=== PATIENT | female | born 1945 | race Hispanic/Latino ===

== ENCOUNTER 2024-05-17 22:29 | Emergency (ER) | payer MEDICARE ==
--- OUTSIDE RECORDS SUMMARY | 2024-05-17 22:32 | XMS REPORT | Continuity of Care Document ---
Author Name Unknown Address [address] [facility] [address] [place] [address] [facility] thconnect Address [address] [facility] [place] [address] Care Team Providers Care Calculator Operator Name Role Phone PCP, PATIENT DOES NOT HAVE A Primary Care Physic sarah Unavailable Huseyin Armijo Attending Clinician Unavailable Maureen Khan Attending Clinician Unavailable MARCELA PAZ Attending Clinician Unavail able Radiology Attending Clinician Unavailable RADIOLOGY Attending Clinician Unavailable Payers Payer Name Policy Type Policy Number Effective Date Expirati on Date Source [employer] [facility] OON Medicare [id number] [employer] [facility] (MEDICARE REPLACEMENT HMO) [id number] 00:[facility]:00 [employer] Replace C1 [id number] 2018 00:00:00 [facility] Problems Condition Name Condition Details Condition Category Status Onset Date Resolution Date Last Treatment Date Treating Clinician Comments Source [id number] Body mass index [BMI] 32.0-32.9, adult Problem [facility] [id number] Other obesity due to excess calories Problem [facility] [id number] Moderate major depression , single episode Problem [facility] Osteoarthr itis of multiple joints Other osteoarthr itis involving multiple joints Problem [facility] [id number] Sciatica of left side Problem [facility] [id number] Obesity (BMI 30.0-34.9) Problem [facility] [id number] Mixed hyperlipid emia Problem [facility] [id number] Other chronic pain Problem [facility] [id number] Lumbago with sciatica, left side Problem [facility] [id number] Depression with anxiety Problem [facility] Depression Depression Problem [facility] Back pain Back pain Problem Comm [facility] Headache Chronic headache Problem [facility] [id number] 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 Problem [facility] [id number] Osteopenia of other site Problem [facility] [id number] Primary osteoarthr itis, unspecifie d site Problem [facility] Hyperlipid emia Hyperlipid emia Problem [facility] [id number] Lumbago with sciatica, right side Problem [facility] [id number] Arthritis of knee, right Problem [facility] Urinary frequency Urinary frequency Problem [facility] [id number] Sciatica, right side Problem [facility] 703573401 History of recent fall Problem [facility] [id number] Patient understand s importance of medication adherence Problem [facility] Seasonal allergic rhinitis Seasonal allergic rhinitis, unspecifie d trigger Problem [facility] Overweight Overweight Problem [facility] [id number] Primary osteoarthr itis of left shoulder Problem [facility] Allergies, Adverse Reactions, Alerts Allergy Name Allergy Type Status Severity Reaction(s) Onset Date Inactive Date Treating Clinician Comments Source NO KNOWN ALLERGIE S Drug Class Active [facility] Social History Social Habit Start Date Stop Date Quantity Comments Source History of Tobacco Use [facility] Sex Assigned At [facility] Smoking Status Start Date Stop Date Source Unknown if ever smoked [facility] Never Smoker [facility] Medications Ordered Medication Name Filled Medication Name Start Date Stop Date Current Medication? Ordering Clinician Indication Dosage Frequency Signature (SIG) Comments Components Source Ketorolac 15mg Ketorolac 15mg 2023-05 0-14 00:00: 00 No 30mg [facility] Bupivicaine Bay Bupivicaine [place] 3 00:00: 00 No 2.5mg [facility] Kenalog (Triamcinol one) Kenalog (Triamcinol one) 2- 00:00: 00 No 40mg [facility] Pravastatin Sodium 10 MG Pravastatin Sodium 10 MG No 1{table t_at_be dtime} QD Pravastati n Sodium 10 MG Cyclobenzap rine HCl 5 MG Cyclobenzap rine HCl 5 MG No 1{table t_at_be dtime_a s_neede d} QD Cyclobenza mati HCl 5 MG Immunizations Ordered Immunization Name Filled Immunization Name Date Status Comments Source FLUZONE HIGH DOSE OVER 65 FLUZONE HIGH DOSE OVER 65 2022-03-31 09:43:00 Completed [facility] FLUZONE HIGH DOSE OVER 65 FLUZONE HIGH DOSE OVER 65 2022-03-31 09:43:00 Completed [facility] FLUZONE HIGH DOSE OVER 65 FLUZONE HIGH DOSE OVER 65 2022-03-31 09:43:00 Completed [facility] Shingrix Shingrix 2021-04-16 11:11:00 Completed [facility] Shingrix Shingrix 2021-04-16 11:11:00 Completed [facility] Shingrix Shingrix 2021-04-16 11:11:00 Completed [facility] Shingrix Shingrix 2021-04-16 11:11:00 Completed [facility] Shingrix Shingrix 2021-04-16 11:11:00 Completed [facility] FluAD FluAD 2021-04-16 11:10:00 Completed [facility] FluAD FluAD 2021-04-16 11:10:00 Completed [facility] FluAD FluAD 2021-04-16 11:10:00 Completed [facility] FluAD FluAD 2021-04-16 11:10:00 Completed [facility] FluAD FluAD 2021-04-16 11:10:00 Completed [facility] Bupivicaine Bay Bupivicaine [place] 2020-08-09 15:38:00 Completed [facility] Kenalog (Triamcinolone) Kenalog (Triamcinolone) 2020-08-09 15:38:00 Completed [facility] FluAD FluAD 2020-02-09 09:56:00 Completed [facility] FluAD FluAD 2020-02-09 09:56:00 Completed [facility] FluAD FluAD 2020-02-09 09:56:00 Completed [facility] FluAD FluAD 2020-02-09 09:56:00 Completed [facility] FluAD FluAD 2020-02-09 09:56:00 Completed [facility] FluAD FluAD 2020-02-09 09:56:00 Completed [facility] FluAD FluAD 2018-03-24 08:39:00 Completed [facility] FluAD FluAD 2018-03-24 08:39:00 Completed [facility] FluAD FluAD 2018-03-24 08:39:00 Completed [facility] FluAD FluAD 2018-03-24 08:39:00 Completed [facility] FluAD FluAD 2018-03-24 08:39:00 Completed [facility] FluAD FluAD 2018-03-24 08:39:00 Completed [facility] Kenalog (Triamcinolone) Kenalog (Triamcinolone) 2017-06-23 08:51:00 Completed [facility] FluAD FluAD Unknown Completed [facility] Shingrix Shingrix Unknown Completed [facility] FLUZONE HIGH DOSE OVER 65 FLUZONE HIGH DOSE OVER 65 Unknown Completed [facility] FluAD FluAD Unknown Completed [facility] Shingrix Shingrix Unknown Completed [facility] FLUZONE HIGH DOSE OVER 65 FLUZONE HIGH DOSE OVER 65 Unknown Completed [facility] FluAD Quad SD FluAD Quad SD Unknown Completed [facility] FluAD FluAD Unknown Completed [facility] Shingrix Shingrix Unknown Completed [facility] FLUZONE HIGH DOSE OVER 65 FLUZONE HIGH DOSE OVER 65 Unknown Completed [facility] FluAD Quad SD FluAD Quad SD Unknown Completed [facility] FluAD FluAD Unknown Completed [facility] Shingrix Shingrix Unknown Completed [facility] FLUZONE HIGH DOSE OVER 65 FLUZONE HIGH DOSE OVER 65 Unknown Completed [facility] Fluad (aIIV4) - SDS - 0.5mL Fluad (aIIV4) - SDS - 0.5mL Unknown Completed [facility] FluAD FluAD Unknown Completed [facility] Shingrix Shingrix Unknown Completed [facility] FLUZONE HIGH DOSE OVER 65 FLUZONE HIGH DOSE OVER 65 Unknown Completed [facility] Fluad (aIIV4) - SDS - 0.5mL Fluad (aIIV4) - SDS - 0.5mL Unknown Completed [facility] FluAD FluAD Unknown Completed [facility] Shingrix Shingrix Unknown Completed [facility] FLUZONE HIGH DOSE OVER 65 FLUZONE HIGH DOSE OVER 65 Unknown Completed [facility] Fluad (aIIV4) - SDS - 0.5mL Fluad (aIIV4) - SDS - 0.5mL Unknown Completed [facility] FluAD FluAD Unknown Completed [facility] Shingrix Shingrix Unknown Completed [facility] FLUZONE HIGH DOSE OVER 65 FLUZONE HIGH DOSE OVER 65 Unknown Completed [facility] Fluad (aIIV4) - SDS - 0.5mL Fluad (aIIV4) - SDS - 0.5mL Unknown Completed [facility] FluAD FluAD Unknown Completed [facility] Shingrix Shingrix Unknown Completed [facility] FLUZONE HIGH DOSE OVER 65 FLUZONE HIGH DOSE OVER 65 Unknown Completed [facility] Fluad (aIIV4) - SDS - 0.5mL Fluad (aIIV4) - SDS - 0.5mL Unknown Completed [facility] FluAD FluAD Unknown Completed [facility] Shingrix Shingrix Unknown Completed [facility] FLUZONE HIGH DOSE OVER 65 FLUZONE HIGH DOSE OVER 65 Unknown Completed [facility] Vital Signs Vital Name Observation Time Observation Value Comments S ource height 2024-03-29 08:15:00 61.5 [in_i] Comm on [facility] weight 2024-03-29 08:15:00 147.4 [lb_av] Co mmon [facility] temperature 2024-03-29 08:15:00 98.2 [degF] Com mon [facility] bmi 2024-03-29 08:15:00 27.4 kg/m2 Commo n [facility] oximetry 2024-03-29 08:15:00 98 % Commo n [facility] blood pressure systolic 2024-03-29 08:15:00 124 mm[Hg] [facility] blood pressure diastolic 2024-03-29 08:15:00 72 mm[Hg] Common [facility] height 2024-02-29 10:40:00 61.5 [in_i] Comm on [facility] weight 2024-02-29 10:40:00 152.0 [lb_av] Co mmon [facility] temperature 2024-02-29 10:40:00 98.0 [degF] Com mon [facility] bmi 2024-02-29 10:40:00 28.25 kg/m2 Comm on [facility] oximetry 2024-02-29 10:40:00 97 % Commo n [facility] respiratory rate 2024-02-29 10:40:00 18 /min Common [facility] blood pressure systolic 2024-02-29 10:40:00 122 mm[Hg] Common [facility] blood pressure diastolic 2024-02-29 10:40:00 79 mm[Hg] Common [facility] height 2023-11-27 08:30:00 61.5 [in_i] Comm on [facility] weight 2023-11-27 08:30:00 161 [lb_av] Comm on [facility] temperature 2023-11-27 08:30:00 97.8 [degF] Com mon [facility] bmi 2023-11-27 08:30:00 29.92 kg/m2 Comm on [facility] oximetry 2023-11-27 08:30:00 96 % Commo n [facility] blood pressure systolic 2023-11-27 08:30:00 126 mm[Hg] [facility] blood pressure diastolic 2023-11-27 08:30:00 64 mm[Hg] Common [facility] height 2023-11-27 08:30:00 61.5 [in_i] Comm on [facility] weight 2023-11-27 08:30:00 161 [lb_av] Comm on [facility] temperature 2023-11-27 08:30:00 97.8 [degF] Com [facility] bmi 2023-11-27 08:30:00 29.92 kg/m2 Comm on [facility] oximetry 2023-11-27 08:30:00 96 % Commo n [facility] blood pressure systolic 2023-11-27 08:30:00 126 mm[Hg] [facility] blood pressure diastolic 2023-11-27 08:30:00 64 mm[Hg] [facility] height 2023-07-24 08:40:00 61.5 [in_i] Comm on [facility] weight 2023-07-24 08:40:00 172.0 [lb_av] Co [facility] temperature 2023-07-24 08:40:00 97.2 [degF] Com [facility] bmi 2023-07-24 08:40:00 31.97 kg/m2 Comm on [facility] oximetry 2023-07-24 08:40:00 97 % Commo n [facility] respiratory rate 2023-07-24 08:40:00 18 /min [facility] blood pressure systolic 2023-07-24 08:40:00 129 mm[Hg] [facility] blood pressure diastolic 2023-07-24 08:40:00 63 mm[Hg] Common [facility] height 2023-07-24 08:40:00 61.5 [in_i] Comm on [facility] weight 2023-07-24 08:40:00 172.0 [lb_av] Co [facility] temperature 2023-07-24 08:40:00 97.2 [degF] Com [facility] bmi 2023-07-24 08:40:00 31.97 kg/m2 Comm on [facility] oximetry 2023-07-24 08:40:00 97 % Commo n [facility] respiratory rate 2023-07-24 08:40:00 18 /min Common [facility] blood pressure systolic 2023-07-24 08:40:00 129 mm[Hg] [facility] blood pressure diastolic 2023-07-24 08:40:00 63 mm[Hg] [facility] height 2023-07-24 08:50:00 61.5 [in_i] Comm on [facility] weight 2023-07-24 08:50:00 172.0 [lb_av] Co mmon [facility] temperature 2023-07-24 08:50:00 97.2 [degF] Com [facility] bmi 2023-07-24 08:50:00 31.97 kg/m2 Comm on [facility] oximetry 2023-07-24 08:50:00 97 % Commo n [facility] respiratory rate 2023-07-24 08:50:00 18 /min Common [facility] blood pressure systolic 2023-07-24 08:50:00 129 mm[Hg] [facility] blood pressure diastolic 2023-07-24 08:50:00 63 mm[Hg] [facility] height 2023-03-26 08:30:00 61.5 [in_i] Comm on [facility] weight 2023-03-26 08:30:00 168.2 [lb_av] Co mmon [facility] temperature 2023-03-26 08:30:00 97.2 [degF] Com [facility] bmi 2023-03-26 08:30:00 31.26 kg/m2 Comm on [facility] oximetry 2023-03-26 08:30:00 98 % Commo n [facility] respiratory rate 2023-03-26 08:30:00 16 /min Common [facility] blood pressure systolic 2023-03-26 08:30:00 124 mm[Hg] [facility] blood pressure diastolic 2023-03-26 08:30:00 66 mm[Hg] [facility] height 2022-11-20 10:40:00 61.5 [in_i] Comm on [facility] weight 2022-11-20 10:40:00 173.4 [lb_av] Co mmon [facility] temperature 2022-11-20 10:40:00 97.3 [degF] Com mon [facility] bmi 2022-11-20 10:40:00 32.23 kg/m2 Comm on [facility] oximetry 2022-11-20 10:40:00 99 % Commo n [facility] respiratory rate 2022-11-20 10:40:00 18 /min [facility] blood pressure systolic 2022-11-20 10:40:00 129 mm[Hg] [facility] blood pressure diastolic 2022-11-20 10:40:00 71 mm[Hg] Common [facility] height 2022-07-24 09:30:00 61.5 [in_i] Comm on [facility] weight 2022-07-24 09:30:00 171.6 [lb_av] Co mmon [facility] temperature 2022-07-24 09:30:00 97.3 [degF] Com mon [facility] bmi 2022-07-24 09:30:00 31.89 kg/m2 Comm on [facility] oximetry 2022-07-24 09:30:00 98 % Commo n [facility] respiratory rate 2022-07-24 09:30:00 18 /min [facility] blood pressure systolic 2022-07-24 09:30:00 117 mm[Hg] [facility] blood pressure diastolic 2022-07-24 09:30:00 71 mm[Hg] Common [facility] height 2022-07-24 09:30:00 61.5 [in_i] Comm on [facility] weight 2022-07-24 09:30:00 171.6 [lb_av] Co mmon [facility] temperature 2022-07-24 09:30:00 97.3 [degF] Com mon [facility] bmi 2022-07-24 09:30:00 31.89 kg/m2 Comm on [facility] oximetry 2022-07-24 09:30:00 98 % Commo n [facility] respiratory rate 2022-07-24 09:30:00 18 /min [facility] blood pressure systolic 2022-07-24 09:30:00 117 mm[Hg] [facility] blood pressure diastolic 2022-07-24 09:30:00 71 mm[Hg] Common [facility] height 2022-03-31 09:40:00 61.5 [in_i] Comm on [facility] weight 2022-03-31 09:40:00 176.2 [lb_av] Co mmon [facility] temperature 2022-03-31 09:40:00 97.5 [degF] Com mon [facility] bmi 2022-03-31 09:40:00 32.75 kg/m2 Comm on [facility] oximetry 2022-03-31 09:40:00 95 % Commo n [facility] respiratory rate 2022-03-31 09:40:00 18 /min Common [facility] blood pressure systolic 2022-03-31 09:40:00 124 mm[Hg] [facility] blood pressure diastolic 2022-03-31 09:40:00 67 mm[Hg] Common [facility] height 2021-11-28 09:20:00 61.5 [in_i] Comm on [facility] weight 2021-11-28 09:20:00 173.6 [lb_av] Co mmon [facility] temperature 2021-11-28 09:20:00 97.6 [degF] Com [facility] bmi 2021-11-28 09:20:00 32.27 kg/m2 Comm on [facility] oximetry 2021-11-28 09:20:00 93 % Commo n [facility] respiratory rate 2021-11-28 09:20:00 18 /min Common [facility] blood pressure systolic 2021-11-28 09:20:00 137 mm[Hg] [facility] blood pressure diastolic 2021-11-28 09:20:00 72 mm[Hg] [facility] height 2021-07-25 09:30:00 61.5 [in_i] Comm on [facility] weight 2021-07-25 09:30:00 175.2 [lb_av] Co mmon [facility] temperature 2021-07-25 09:30:00 97.9 [degF] Com [facility] bmi 2021-07-25 09:30:00 32.56 kg/m2 Comm on [facility] oximetry 2021-07-25 09:30:00 99 % Commo n [facility] respiratory rate 2021-07-25 09:30:00 17 /min Common [facility] blood pressure systolic 2021-07-25 09:30:00 135 mm[Hg] [facility] blood pressure diastolic 2021-07-25 09:30:00 67 mm[Hg] [facility] height 2021-07-25 09:40:00 61.5 [in_i] Comm on [facility] weight 2021-07-25 09:40:00 175.2 [lb_av] Co mmon [facility] temperature 2021-07-25 09:40:00 97.9 [degF] Com mon [facility] bmi 2021-07-25 09:40:00 32.56 kg/m2 Comm on [facility] oximetry 2021-07-25 09:40:00 99 % Commo n [facility] respiratory rate 2021-07-25 09:40:00 17 /min Common [facility] blood pressure systolic 2021-07-25 09:40:00 135 mm[Hg] [facility] blood pressure diastolic 2021-07-25 09:40:00 76 mm[Hg] Common [facility] height 2021-04-23 11:00:00 61.5 [in_i] Comm on [facility] weight 2021-04-23 11:00:00 175.9 [lb_av] Co mmon [facility] temperature 2021-04-23 11:00:00 97.3 [degF] Com mon [facility] bmi 2021-04-23 11:00:00 32.69 kg/m2 Comm on [facility] oximetry 2021-04-23 11:00:00 97 % Commo n [facility] respiratory rate 2021-04-23 11:00:00 17 /min Common [facility] blood pressure systolic 2021-04-23 11:00:00 132 mm[Hg] [facility] blood pressure diastolic 2021-04-23 11:00:00 70 mm[Hg] [facility] blood pressure systolic 2020-12-06 08:40:00 135 mm[Hg] [facility] blood pressure diastolic 2020-12-06 08:40:00 72 mm[Hg] [facility] height 2020-12-06 08:40:00 61.5 [in_i] Comm on [facility] weight 2020-12-06 08:40:00 171.6 [lb_av] Co mmon [facility] temperature 2020-12-06 08:40:00 96.6 [degF] Com mon [facility] bmi 2020-12-06 08:40:00 31.89 kg/m2 Comm on [facility] oximetry 2020-12-06 08:40:00 98 % Commo n [facility] respiratory rate 2020-12-06 08:40:00 16 /min [facility] Procedures Procedure Date / Time Performed Performing Clinicia n Source DEXA AXIAL (HIP AND SPINE) 2021-08-16 14:53:11 Requisition, Paper [facility] NOTICE OF PRIVACY PRACTICES 2021-08-16 14:14:39 Doctor Unassigned, [place] [facility] CONSENT/REFUSAL FOR DIAGNOSIS AND TREATMENT 2021-08-16 14:12:08 Doctor Unassigned, [place] [facility] ASSIGNMENT OF BENEFITS 2021-08-16 14:11:48 Docto r Unassigned, [place] [facility] Encounters Start Date/Time End Date/Time Encounter Type Admission Type Attending Clinicians Care Facility Care Department Encounter ID Source 2024-03-28 14:06:00 [facility] [id number] [facility] 2024-03-08 09:56:00 Outpatient Arimjo, [facility] [id number] [facility] 2024-02-29 08:25:00 [facility] [id number] [facility] 2022-11-19 09:47:00 [facility] [id number] [facility] 2022-07-22 08:11:00 [facility] [id number] [facility] 2022-07-21 16:18:00 [facility] [id number] [facility] 2022-03-27 09:54:00 Outpatient ArmijoJorge augustineh STLMLC ST[facility] [id number] [facility] 2021-06-12 14:21:37 Outpatient ArmijoJorge augustineh STLMLC ST[facility] [id number] [facility] 2021-06-12 14:09:04 Outpatient STLMLC ST[facility] [id number] [facility] 2021-06-12 14:02:04 Outpatient Khan, Na STLMLC ST[facility]C [id number] [facility] 2021-06-12 13:29:24 Outpatient Khan, Na STLMLC STLMLC [id number] [facility] 2021-06-12 13:28:41 Outpatient Khan, Na STLMLC STLMLC [id number] [facility] 2021-06-12 12:53:56 Outpatient Khan, Na STLMLC STLMLC [id number] [facility] 2021-06-12 12:47:59 Outpatient Khan, Na STLMLC STL[facility]C [id number] [facility] 2021-06-12 12:44:31 Outpatient Khan, Na STLMLC STLMLC [id number] [facility] 2021-06-12 12:43:56 Outpatient Khan, Na STLMLC STLMLC [id number] [facility] 2021-06-12 12:37:21 Outpatient Khan, Na STLMLC STLMLC [id number] [facility] 2021-06-12 12:22:40 Outpatient Khan, Na STLMLC STLMLC [id number] [facility] 2021-06-12 11:56:09 Outpatient Khan, Na STLMLC STLMLC [id number] [facility] 2021-06-12 11:55:12 Outpatient Khan, Na STLMLC STLMLC [id number] [facility] 2021-06-12 11:48:13 Outpatient Khan, Na STLMLC STLMLC [id number] [facility] 2021-06-12 11:31:31 Outpatient Khan, Na STLMLC STLMLC [id number] [facility] 2021-06-12 11:18:14 Outpatient Khan, Na STLMLC STLMLC [id number] [facility] 2021-06-12 11:17:46 Outpatient Khan, Na STLMLC STLMLC [id number] [facility] 2021-06-12 11:17:39 Outpatient Erin, Na STLMLC STLMLC [id number] [facility] 2024-04-04 10:54:39 2024-04-04 11:31:36 Outpatient Elective MARCELA PAZ [facility] [id number] EOUT 2024-03-29 00:00:00 2024-03-29 00:00:00 OFFICE VISIT ESTAB PT LEVEL 4 [facility]LMLC STLMLC [id number] [facility] 2024-03-08 00:00:00 2024-03-08 00:00:00 (TEL) STLMLC STLMLC [id number] [facility] 2024-03-08 00:00:00 2024-03-08 00:00:00 (TEL) STLMLC STLMLC [id number] [facility] 2024-02-29 00:00:00 2024-02-29 00:00:00 (TEL) STLMLC STLMLC [id number] [facility] 2024-02-29 00:00:00 2024-02-29 00:00:00 OFFICE VISIT ESTAB PT LEVEL 4 [facility]C STLMLC [id number] [facility] 2023-11-27 00:00:00 2023-11-27 00:00:00 OFFICE VISIT ESTAB PT LEVEL 4 [facility] STLMLC [id number] [facility] 2023-07-24 00:00:00 2023-07-24 00:00:00 OFFICE VISIT ESTAB PT LEVEL 4 [facility] STLMLC [id number] [facility] 2023-07-24 00:00:00 2023-07-24 00:00:00 SUB ANNUAL MCR WELLNESS VISIT STLMLC STLMLC [id number] [facility] 2023-03-26 00:00:00 2023-03-26 00:00:00 OFFICE VISIT ESTAB PT LEVEL 3 [facility] STLMLC [id number] [facility] 2023-01-29 00:00:00 2023-01-29 00:00:00 (TEL) STLMLC STLMLC [id number] [facility] 2022-11-20 00:00:00 2022-11-20 00:00:00 OFFICE VISIT ESTAB PT LEVEL 4 [facility] STLMLC [id number] [facility] 2022-09-10 00:00:00 2022-09-10 00:00:00 (TEL) STLMLC STLMLC [id number] [facility] 2022-07-24 00:00:00 2022-07-24 00:00:00 OFFICE VISIT ESTAB PT LEVEL 4 [facility]C STLMLC [id number] [facility] 2022-07-24 00:00:00 2022-07-24 00:00:00 SUB ANNUAL MCR WELLNESS VISIT STLMLC STLMLC [id number] [facility] 2022-06-04 00:00:00 2022-06-04 00:00:00 (TEL) STLMLC STLMLC [id number] [facility] 2022-05-21 00:00:00 2022-05-21 00:00:00 (TEL) STLMLC STLMLC [id number] [facility] 2022-03-31 00:00:00 2022-03-31 00:00:00 OFFICE VISIT EST PT LEVEL 3 STLMLC STLMLC [id number] [facility] 2021-11-29 03:50:00 2021-11-29 03:50:00 Outpatient [facility] [id number] [facility] 2021-11-28 00:00:00 2021-11-28 00:00:00 OFFICE VISIT ESTAB PT LEVEL 4 [facility] STLMLC [id number] [facility] 2021-10-03 12:00:00 2021-10-03 12:00:00 Outpatient [facility] [id number] [facility] 2021-08-16 09:14:56 2021-08-16 23:59:00 Hospital Encounter Radiology [facility] [id number] [facility] 2021-08-16 09:10:10 2021-08-16 09:13:00 Hospital Encounter Radiology [facility] [id number] [facility] 2021-08-16 09:10:10 2021-08-16 09:13:00 Outpatient R RADIOLOGY [facility] [id number] [facility] 2021-07-25 00:00:00 2021-07-25 00:00:00 OFFICE VISIT EST PT LEVEL 3 [facility] STLMLC [id number] [facility] 2021-07-25 00:00:00 2021-07-25 00:00:00 SUB ANNUAL [facility] WELLNESS VISIT STLMLC STLMLC [id number] [facility] 2021-06-07 00:00:00 2021-06-07 00:00:00 (TEL) STLMLC STLMLC [id number] [facility] 2021-05-15 00:00:00 2021-05-15 00:00:00 (TEL) STLMLC STLMLC [id number] [facility] 2021-04-23 00:00:00 2021-04-23 00:00:00 OFFICE VISIT ESTAB PT LEVEL 4 [facility] STLMLC [id number] [facility] 2020-12-06 00:00:00 2020-12-06 00:00:00 OFFICE VISIT ESTAB PT LEVEL 4 [facility] STL[facility]C [id number] [facility] 2020-09-11 00:00:00 2020-09-11 00:00:00 Outpatient [facility] STL[facility]C [id number] [facility] 2020-09-06 00:00:00 2020-09-06 00:00:00 Outpatient [facility] STL[facility]C [id number] [facility] 2020-09-05 00:00:00 2020-09-05 00:00:00 Outpatient [facility] STL[facility]C [id number] [facility] 2020-08-09 00:00:00 2020-08-09 00:00:00 Outpatient [facility] STLMLC [id number] [facility] 2020-08-01 00:00:00 2020-08-01 00:00:00 Outpatient [facility] STLMLC [id number] [facility] 2020-07-11 00:00:00 2020-07-11 00:00:00 Outpatient [facility]C STLMLC [id number] [facility] 2020-06-07 00:00:00 2020-06-07 00:00:00 Outpatient [facility] STL[facility]C [id number] [facility] 2020-06-07 00:00:00 2020-06-07 00:00:00 Outpatient [facility] STLMLC [id number] [facility] 2020-03-29 00:00:00 2020-03-29 00:00:00 Outpatient [facility]C STLMLC [id number] [facility] 2020-03-02 00:00:00 2020-03-02 00:00:00 Outpatient [facility] STL[facility]C [id number] [facility] 2020-03-02 00:00:00 2020-03-02 00:00:00 Outpatient [facility] ST[facility]C [id number] [facility] 2020-02-09 00:00:00 2020-02-09 00:00:00 Outpatient [facility] ST[facility]C [id number] [facility] 2020-02-07 00:00:00 2020-02-07 00:00:00 Outpatient [facility] ST[facility]C [id number] [facility] 2020-01-31 16:06:00 2020-01-31 16:06:00 [facility] [id number] [facility] 2019-12-02 08:20:00 2019-12-02 08:20:00 [facility] [id number] [facility] 2019-09-02 13:40:00 2019-09-02 13:40:00 [facility] [id number] [facility] 2019-08-26 09:00:00 2019-08-26 09:00:00 [facility] [id number] [facility] 2019-06-03 08:00:00 2019-06-03 08:00:00 [facility] [id number] [facility] 2019-03-03 10:40:00 2019-03-03 10:40:00 [facility] [id number] [facility] 2018-11-26 08:20:00 2018-11-26 08:20:00 [facility] [id number] [facility] 2018-08-26 08:40:00 2018-08-26 08:40:00 Outpatient [facility] [id number] [facility] 2018-06-24 09:00:00 2018-06-24 09:00:00 Outpatient [facility] [id number] [facility] 2017-09-22 08:15:00 2017-09-22 08:15:00 Outpatient [facility] [id number] [facility] Results Test Description Test Time Test Comments Results Result Co mments Source CBC W/AUTO [id number] 00:00:00* Test Item Value Reference Range Interpretation Comme nts NUCLEATED RBCS (test code = 90134-2) 0.0 /100 WBC'S See_Comment [Automated messa ge] The system which generated this result transmitted reference range: 0.0 /100 WBC'S. The reference range was not used to interpret this result as normal/abnormal. ABSOLUTE EOSINOPHILS (test code = 11708-4) 0.03 K/UL See_Comment [Automated messa ge] The system which generated this result transmitted reference range: 0.00-0.50 K/UL. The reference range was not used to interpret this result as normal/abnormal. ABSOLUTE LYMPHOCYTES (test code = 14927-0) 1.43 K/UL See_Comment [Automated messa ge] The system which generated this result transmitted reference range: 1.00-4.00 K/UL. The reference range was not used to interpret this result as normal/abnormal. ABSOLUTE MONOCYTES (test code = 91960-1) 0.33 K/UL See_Comment [Automated messa ge] The system which generated this result transmitted reference range: 0.20-1.00 K/UL. The reference range was not used to interpret this result as normal/abnormal. ABSOLUTE NEUTROPHILS (test code = 78589-3) 2.97 K/UL See_Comment [Automated messa ge] The system which generated this result transmitted reference range: 1.50-7.50 K/UL. The reference range was not used to interpret this result as normal/abnormal. BASOPHILS (test code = 01093-7) 0.2 % EOSINOPHILS (test code = 68368-0) 0.6 % HEMATOCRIT (test code = 11171-5) 42.3 % See_Comment [Automated messa ge] The system which generated this result transmitted reference range: 34.0-45.0 %. The reference range was not used to interpret this result as normal/abnormal. HEMOGLOBIN (test code = 718-7) 14.4 G/DL See_Comment [Automated messa ge] The system which generated this result transmitted reference range: 11.5-15.5 G/DL. The reference range was not used to interpret this result as normal/abnormal. LYMPHOCYTES (test code = 61675-0) 29.9 % MCH (test code = 92339-4) 33.1 PG See_Comment H [Automated messa ge] The system which generated this result transmitted reference range: 25.0-33.0 PG. The reference range was not used to interpret this result as normal/abnormal. MCHC (test code = 15002-1) 34.0 G/DL See_Comment [Automated messa ge] The system which generated this result transmitted reference range: 31.0-36.0 G/DL. The reference range was not used to interpret this result as normal/abnormal. MCV (test code = 74996-3) 97.2 fL See_Comment [Automated messa ge] The system which generated this result transmitted reference range: 80.0-99.0 fL. The reference range was not used to interpret this result as normal/abnormal. MONOCYTES (test code = 39278-3) 6.9 % NEUTROPHILS (test code = 55157-9) 62.0 % PLATELET COUNT (test code = 96692-9) 169 K/UL See_Comment [Automated messa ge] The system which generated this result transmitted reference range: 130-400 K/UL. The reference range was not used to interpret this result as normal/abnormal. RBC (test code = 81121-0) 4.35 M/UL See_Comment [Automated messa ge] The system which generated this result transmitted reference range: 3.80-5.40 M/UL. The reference range was not used to interpret this result as normal/abnormal. RDW (test code = 51643-2) 13.0 % See_Comment [Automated messa ge] The system which generated this result transmitted reference range: 11.5-15.0 %. The reference range was not used to interpret this result as normal/abnormal. WBC (test code = 93107-9) 4.8 K/UL See_Comment [Automated messa ge] The system which generated this result transmitted reference range: 3.5-11.0 K/UL. The reference range was not used to interpret this result as normal/abnormal. LIPID PANEL WITH REFLEX DIRECT [id number] 00:00:00* Test Item Value Reference Range Interpretation Comme nts CALC LDL CHOL (test code = 67644-1) 103 MG/DL See_Comment H [Automated messa ge] The system which generated this result transmitted reference range: <100 MG/DL. The reference range was not used to interpret this result as normal/abnormal. CHOLESTEROL (test code = 2093-3) 180 MG/DL See_Comment [Automated messa ge] The system which generated this result transmitted reference range: <200 MG/DL. The reference range was not used to interpret this result as normal/abnormal. HDL CHOLESTEROL (test code = 2085-9) 54 MG/DL See_Comment [Automated messa ge] The system which generated this result transmitted reference range: >39 MG/DL. The reference range was not used to interpret this result as normal/abnormal. RISK RATIO LDL/HDL (test code = 72448-2) 1.91 RATIO See_Comment [Automated message] The system which generated this result transmitted reference range: <3.22 RATIO. The reference range was not used to interpret this result as normal/abnormal. TRIGLYCERIDES (test code = 2571-8) 125 MG/DL See_Comment [Automated messa ge] The system which generated this result transmitted reference range: <150 MG/DL. The reference range was not used to interpret this result as normal/abnormal. LIPID PANEL WITH REFLEX DIRECT [id number] 00:00:00* Test Item Value Reference Range Interpretation Comme nts CALC LDL CHOL (test code = 78185-8) 147 MG/DL See_Comment H [Automated messa ge] The system which generated this result transmitted reference range: <100 MG/DL. The reference range was not used to interpret this result as normal/abnormal. CHOLESTEROL (test code = 2093-3) 236 MG/DL See_Comment H [Automated messa ge] The system which generated this result transmitted reference range: <200 MG/DL. The reference range was not used to interpret this result as normal/abnormal. HDL CHOLESTEROL (test code = 2085-9) 53 MG/DL See_Comment [Automated LiquidM] The system which generated this result transmitted reference range: >39 MG/DL. The reference range was not used to interpret this result as normal/abnormal. RISK RATIO LDL/HDL (test code = 71396-8) 2.77 RATIO See_Comment [Automated message] The system which generated this result transmitted reference range: <3.22 RATIO. The reference range was not used to interpret this result as normal/abnormal. TRIGLYCERIDES (test code = 2571-8) 225 MG/DL See_Comment H [Automated LiquidM] The system which generated this result transmitted reference range: <150 MG/DL. The reference range was not used to interpret this result as normal/abnormal. Lumbar Spine 3 ViewsLumbar Spine 3 ViewsDEXA, BONE DENSITY AXIAL SKELEDEXA, BONE DENSITY AXIAL SKELE
[2024-05-17] MEDS ORDERED: THIAMINE 200 MG/2 ML INJ ONE (22:58)
[2024-05-17] MEDS ORDERED: MULTIVITAMINS 10 ML VIAL (INJ) IV ONE (22:59)
[2024-05-17] MEDS ORDERED: FOLIC ACID 5 MG/ML VIAL ONE (22:59)
[2024-05-17] MEDS ORDERED: NA CHLORIDE 0.9% 1,000 ML ONE (23:00)
[2024-05-17 23:29] LABS: Absolute Eosinophils 0.1 K/uL (0-0.5); Absolute Lymphocytes (CBC) 1.4 K/uL (0.7-4.9); Absolute Monocytes 0.4 K/uL (0.1-1.3); Basophils % 0.6 % (0-1.3); Eosinophils % 1.1 % (0-4.4); Hematocrit 38.8 % (36.0-45.0); Hemoglobin 13.2 g/dL (12.0-15.0); Lymphocytes % 28.4 % (15.3-44.8); MCH 34.3 pg (27.0-35.0); MCHC 34.2 g/dL (32.0-36.0); MCV 100.4 fL (80-100); MPV 8.5 fL (7.6-11.3); Monocytes % 8.1 % (3.3-12.3); Neutrophils % 61.8 % (41.7-73.7); Nucleated Red Blood Cells % 0.1 % (0-0); Platelets 174 thou/uL (152-406); RBC Red Blood Cell Count 3.86 M/uL (3.86-4.86); Red Cell Distribution Width 12.9 % (12.1-15.2)
[2024-05-17 23:45] LABS: Albumin 3.5 g/dL (3.4-5.0); Albumin/Globulin Ratio 1.1 (1.1-1.8); Anion Gap 12.4 mEq/L (5.0-15.0); Bilirubin Total 0.4 mg/dL (0.2-1.0); Globulin 3.1 g/dL (2.3-3.5); Protein, Total 6.6 g/dL (6.4-8.2); Troponin High Sensitivity 7.3 pg/mL (<58.9)
[2024-05-17 23:46] LABS: Potassium 3.4 mEq/L (3.5-5.1)
--- NOTE | 2024-05-18 | RAD REPORT ---
PROCEDURE: Head C Spine Mpr Wo Con (accession [id number]), Facial Bones W/ Mpr (accession [id number]) CLINICAL HISTORY: PAIN TECHNIQUE: Contiguous axial CT images obtained through the brain and maxillofacial region without IV contrast. C oronal and sagittal reformatted images were provided. This exam was performed according to our departmental dose-optimization program, which includes autom ated exposure control, adjustment of the mA and/or kV according to patient size and/or use of iterative reconstruction technique. COMPARISON: None available for comparison FINDINGS: Brain: No significant white matter changes. No focal mass effect. Ko-white matter differentiation i s within normal limits. No hemorrhage. Ventricles: No ventriculomegaly or midline shift. Extra-axial spaces: No extra-axial collection or hemorrhage. Vessels: Unremarkable Bones: Unremarkable Soft tissues: Unremarkable Maxillofacial bones: No evidence of acute fracture or deformity. Temporomandibular joints : No dislocation. Paranasal sinuses and mastoid air cells: Well aerated Orbits: Globes appear intact. No intraconal or extraconal abnormality. Optic nerves appear unremark able. Soft tissues: Unremarkable IMPRESSION: 1. No acute intracranial injury. 2. No acute maxillofacial fracture. PROCEDURE: Head C Spine Mpr Wo Con (accession [id number]), Facial Bones W/ Mpr (accession [id number]) CLINICAL HISTORY: PAIN TECHNIQUE: Contiguous axial CT images obtained through the cervical spine without IV contrast. Coronal and sag ittal reformatted images also provided. This exam was performed according to our departmental dose-optimization program, which includes autom ated exposure control, adjustment of the mA and/or kV according to patient size and/or use of iterative reconstruction technique. COMPARISON: None available for comparison FINDINGS: Vertebra: No acute fracture or subluxation. Degenerative changes: Mild degenerative changes of the cervical spine with narrowing of the C6-C7 int ervertebral disc space Prevertebral soft tissues: Unremarkable Lung apices: Clear IMPRESSION: No acute cervical spine fracture. Mild degenerative changes. Electronically signed by: Frank Vora MD 05/17/2024 11:55 PM STRAIGHTENING MACHINE OPERATOR Due to temporary technical issues with the PACS[employer] reporting system, reports are being joshua d by the in-house radiologist without review as a courtesy to ensure prompt reporting the interpreting radiologist is fully responsible for the content of the report. Transcribed Date/Time: 05/18/2024 12:00 AM
--- NOTE | 2024-05-18 | RAD REPORT ---
PROCEDURE: Head C Spine Mpr Wo Con (accession [id number]), Facial Bones W/ Mpr (accession [id number]) CLINICAL HISTORY: PAIN TECHNIQUE: Contiguous axial CT images obtained through the brain and maxillofacial region without IV contrast. C oronal and sagittal reformatted images were provided. This exam was performed according to our departmental dose-optimization program, which includes autom ated exposure control, adjustment of the mA and/or kV according to patient size and/or use of iterative reconstruction technique. COMPARISON: None available for comparison FINDINGS: Brain: No significant white matter changes. No focal mass effect. Ko-white matter differentiation i s within normal limits. No hemorrhage. Ventricles: No ventriculomegaly or midline shift. Extra-axial spaces: No extra-axial collection or hemorrhage. Vessels: Unremarkable Bones: Unremarkable Soft tissues: Unremarkable Maxillofacial bones: No evidence of acute fracture or deformity. Temporomandibular joints : No dislocation. Paranasal sinuses and mastoid air cells: Well aerated Orbits: Globes appear intact. No intraconal or extraconal abnormality. Optic nerves appear unremark able. Soft tissues: Unremarkable IMPRESSION: 1. No acute intracranial injury. 2. No acute maxillofacial fracture. PROCEDURE: Head C Spine Mpr Wo Con (accession [id number]), Facial Bones W/ Mpr (accession [id number]) CLINICAL HISTORY: PAIN TECHNIQUE: Contiguous axial CT images obtained through the cervical spine without IV contrast. Coronal and sag ittal reformatted images also provided. This exam was performed according to our departmental dose-optimization program, which includes autom ated exposure control, adjustment of the mA and/or kV according to patient size and/or use of iterative reconstruction technique. COMPARISON: None available for comparison FINDINGS: Vertebra: No acute fracture or subluxation. Degenerative changes: Mild degenerative changes of the cervical spine with narrowing of the C6-C7 int ervertebral disc space Prevertebral soft tissues: Unremarkable Lung apices: Clear IMPRESSION: No acute cervical spine fracture. Mild degenerative changes. Electronically signed by: Frank Vora MD 05/17/2024 11:55 PM BEAM DYER Due to temporary technical issues with the PACS/[employer] reporting system, reports are being joshua d by the in-house radiologist without review as a courtesy to ensure prompt reporting the interpreting radiologist is fully responsible for the content of the report. Transcribed Date/Time: 05/17/2024 11:59 PM
--- NOTE | 2024-05-18 00:14 | EDPHYS ---
Physician Documentation [facility] Name: Galina Alvarado Age: 78 yrs Sex: Female : 1945 Arrival Date: 05/17/2024 Time: 22:29 Bed 7 Private MD: ED Physician Jesu Domingo HPI: 05/17 22:57 This 78 yrs old Female presents to ER via Unassigned with complaints of Fall kenny Injury. 22:57 Details of fall: The patient fell from an upright position, while walking. Onset: The kenny symptoms/episode began/occurred just prior to arrival. Associated injuries: The patient sustained injury to the head, contusion. Severity of symptoms: At their worst the symptoms were mild, in the emergency department the symptoms are unchanged. The patient has not experienced similar symptoms in the past. Historical: - Home Meds: 23:02 calcium [Active]; Vitamin D Oral [Active]; ay - PMHx: 23:02 Hyperlipidemia; ay - Immunization history:: Adult Immunizations up to date. - Infectious Disease History:: Denies. - Family history:: not pertinent. - Social history:: Smoking status: Patient denies any tobacco usage or history of. ROS: 22:58 Constitutional: Negative for fever, chills, and weight loss, Eyes: Negative for injury, kenny pain, redness, and discharge, Neck: Negative for injury, pain, and swelling, Cardiovascular: Negative for chest pain, palpitations, and edema, Respiratory: Negative for shortness of breath, cough, wheezing, and pleuritic chest pain, Abdomen/GI: Negative for abdominal pain, nausea, vomiting, diarrhea, and constipation, Back: Negative for injury and pain, : Negative for injury, bleeding, discharge, and swelling, MS/Extremity: Negative for injury and deformity, Skin: Negative for injury, rash, and discoloration, Neuro: Negative for headache, weakness, numbness, tingling, and seizure, Psych: Negative for depression, anxiety, suicide ideation, homicidal ideation, and hallucinations, Allergy/Immunology: Negative for hives, rash, and allergies, Endocrine: Negative for neck swelling, polydipsia, polyuria, polyphagia, and marked weight changes, Hematologic/Lymphatic: Negative for swollen nodes, abnormal bleeding, and unusual bruising, 22:58 ENT: Positive for of the nose and mouth, Exam: 22:58 Constitutional: This is a well developed, well nourished patient who is awake, alert, kenny and in no acute distress. Eyes: Pupils equal round and reactive to light, extra-ocular motions intact. Lids and lashes normal. Conjunctiva and sclera are non-icteric and not injected. Cornea within normal limits. Periorbital areas with no swelling, redness, or edema. ENT: Nares patent. No nasal discharge, no septal abnormalities noted. Tympanic membranes are normal and external auditory canals are clear. Oropharynx with no redness, swelling, or masses, exudates, or evidence of obstruction, uvula midline. Mucous membranes moist. Neck: Trachea midline, no thyromegaly or masses palpated, and no cervical lymphadenopathy. Supple, full range of motion without nuchal rigidity, or vertebral point tenderness. No Meningismus. Chest/axilla: Normal chest wall appearance and motion. Nontender with no deformity. No lesions are appreciated. Cardiovascular: Regular rate and rhythm with a normal S1 and S2. No gallops, murmurs, or rubs. Normal PMI, no JVD. No pulse deficits. Respiratory: Lungs have equal breath sounds bilaterally, clear to auscultation and percussion. No rales, rhonchi or wheezes noted. No increased work of breathing, no retractions or nasal flaring. Back: No spinal tenderness. No costovertebral tenderness. Full range of motion. Skin: Warm, dry with normal turgor. Normal color with no rashes, no lesions, and no evidence of cellulitis. MS/ Extremity: Pulses equal, no cyanosis. Neurovascular intact. Full, normal range of motion., bilateral aka Neuro: Awake and alert, GCS 15, oriented to person, place, time, and situation. Cranial nerves II-XII grossly intact. Motor strength 5/5 in all extremities. Sensory grossly intact. Cerebellar exam normal. Normal gait. Psych: Awake, alert, with orientation to person, place and time. Behavior, mood, and affect are within normal limits. 22:58 Head/face: Noted is contusion, hematoma, swelling, that is moderate, of the nose and mouth, 23:02 ECG was reviewed by the Attending Physician. [facility] Vital Signs: 22:51 BP 135 / 84; Pulse 98; Resp 28 S; Temp 98.5; Pulse Ox 95% on R/A; ay 23:17 BP 134 / 82; Pulse 94; Resp 19 S; Pulse Ox 98% on R/A; ay 23:30 BP 124 / 72; Pulse 94; Resp 20 S; Pulse Ox 98% on R/A; ay Nichole Coma Score: 23:00 Eye Response: spontaneous(4). Motor Response: obeys commands(6). Verbal Response: kenny oriented(5). Total: 15. 23:19 Eye Response: spontaneous(4). Motor Response: obeys commands(6). Verbal Response: ay oriented(5). Total: 15. MDM: 22:45 Medical Screening Exam initiated kenny 23:00 Differential diagnosis: Contusion of Hematoma on Laceration of Intracranial bleed- kenny Concussion without LOC. cerebral contusion. Data reviewed: vital signs, nurses notes, EMS record, lab test result(s), EKG, radiologic studies, CT scan, plain films. Consideration of Admission/Observation Escalation of care including admission/observation considered. I considered the following discharge prescriptions or medication management in the emergency department Medications were administered in the Emergency Department. See MAR. Independent interpretation of the following test(s) in the Emergency Department EKG: See my EKG interpretation above. Test considered but Not performed: MRI: no mri brain. Historians other than the Patient: EMS: ems well informed. Care significantly affected by the following chronic conditions: Diabetes, Hypertension, Obesity. Counseling: I had a detailed discussion with the patient and/or guardian regarding the historical points, exam findings, and any diagnostic results supporting the discharge/admit diagnosis, lab results, radiology results, the need for outpatient follow up, for definitive care, 05/17 22:56 Order name: CBC with Diff; Complete Time: 23:[address] [facility] 05/17 22:56 Order name: CMP; Complete Time: 00:[address] [facility] 05/17 22:56 Order name: ETOH Level; Complete Time: 23:[address] [facility] 05/17 22:57 Order name: Troponin High Sensitivity; Complete Time: 00:[address] [facility] 05/17 22:56 Order name: CT Head C Spine [facility] 05/17 22:56 Order name: Facial Bones W/O Con CT [facility] 05/17 23:02 Order name: EKG; Complete Time: 23:[address] [facility] 05/17 22:56 Order name: Ice pack; Complete Time: 22:[address] [facility] 05/17 23:02 Order name: EKG - Nurse/Tech; Complete Time: 23:27 kenny 05/18 00:13 Order name: PO challenge: juice kenny EC: Rate is 94 beats/min. Rhythm is regular. QRS [place] is Normal. LA interval is normal. QRS kenny interval is normal. QT interval is normal. No Q waves. T waves are Normal. No ST changes noted. Clinical impression: Normal ECG and No evidence of ischemia. Interpreted by me. Reviewed by me. Administered Medications: 23:05 Drug: Banana Bag - (Multivitamin IV 1 amp, NS 0.9% IV 1000 ml, Thiamine IV 100 mg, bm8 foLIC Acid IVPB 1 mg) IV at bolus once Route: IV; Rate: bolus; Site: right wrist; 05/18 00:28 Follow up: IV Status: Completed infusion; IV Intake: 1000ml ay 00:29 Follow up: Response: No adverse reaction ay Disposition Summary: 05/18/24 00:14 Discharge Ordered Notes: Location: Home kenny Problem: new kenny Symptoms: have improved kenny Condition: Stable kenny Diagnosis - Fall on same level, unspecified kenny - Alcohol abuse with intoxication kenny - Contusion of other part of head - face, lip kenny - Hypokalemia kenny Followup: kenny - With: Private Physician - When: 2 - 3 days - Reason: Recheck today's complaints, Continuance of care, Re-evaluation by your physician Discharge Instructions: - Discharge Summary Sheet kenny - Alcohol Intoxication kenny - Potassium Content of Foods kenny - Facial or Scalp Contusion kenny - Fall Prevention in the Home, Adult kenny - Alcohol Intoxication, [id number] kenny - Fall Prevention in the Home, Adult, [id number] kenny - Hypokalemia kenny Forms: - Medication Reconciliation Form kenny - Antibiotic Education kenny - Prescription Opioid Use kenny - Patient Portal Instructions kenny - Leadership Thank You Letter kenny Prescriptions: - Tylenol 325 mg Oral tablet - take 2 tablets ORAL route every 6 hours as needed; 36 tablet; Refills: 0, kenny Product Selection Permitted Signatures: Dispatcher [employer] Jesu Dennis MD MD cha McDonald, Brad, RN RN [id number] Justus Cleaning RN DAVIDE ay Corrections: (The following items were deleted from the chart) 05/17 22:57 22:57 CBC+H.LAB.BRZ ordered. EDMS EDMS 22: 22:57 COMPREHENSIVE METABOLIC PANEL+C.LAB.BRZ ordered. EDMS EDMS : 22:57 ETHANOL+C.LAB.BRZ ordered. EDMS EDMS : 22:57 Head C Spine MPR Wo Con+CT.RAD.BRZ ordered. EDMS EDMS : 22:57 Facial Bones W/ MPR+CT.RAD.BRZ ordered. EDMS EDMS
--- NOTE | 2024-05-18 00:14 | ER ---
Nurse's Notes [facility] Name: Galina Alvarado Age: 78 yrs Sex: Female : 1945 Arrival Date: 05/17/2024 Time: 22:29 Bed 7 Private MD: Diagnosis: Fall on same level, unspecified;Alcohol abuse with intoxication;Contusion of other part of head-face, lip;Hypokalemia Presentation: 05/17 22:51 Chief complaint: EMS states: Fall Injury. Coronavirus screen: Client denies travel out ay of the [place] in the last 14 days. Ebola Screen: No symptoms or risks identified at this time. Initial Sepsis Screen: Does the patient meet any 2 criteria? No. Patient's initial sepsis screen is negative. Does the patient have a suspected source of infection? No. Patient's initial sepsis screen is negative. Risk Assessment: Do you want to hurt yourself or someone else? Patient reports no desire to harm self or others. Note Pt was BIBA for c/o fall with lacerations on nose bridge and upper lip. Per EMS pt drank some bottle wine. +LOC but denies being on any blood thinner. Pt now alert and oriented. No any distress noted ATT. Onset of symptoms was May 17, 2024. 22:51 Method Of Arrival: EMS: [facility] ay 22:51 Acuity: YAZMIN 3 ay Triage Assessment: 23:02 General: Appears in no apparent distress. uncomfortable, Behavior is calm, cooperative. ay Pain: Complains of pain in upper lip and nose bridge Pain does not radiate. Pain currently is 10 out of 10 on a pain scale. Quality of pain is described as burning. EENT: No signs and/or symptoms were reported regarding the EENT system. Neuro: Level of Consciousness is awake, alert, obeys commands, Oriented to person, place, time, situation, Trimming Inspector are equal bilaterally Speech is normal. Cardiovascular: Denies chest pain, Capillary refill < 3 seconds. Respiratory: Airway is patent Respiratory effort is even, unlabored, Respiratory pattern is regular, symmetrical. GI: Abdomen is round. : No signs and/or symptoms were reported regarding the genitourinary system. Derm: Skin has skin tears on nose bridge and upper lip. Musculoskeletal: No signs and/or symptoms reported regarding the musculoskeletal system. Injury Description: Laceration sustained to upper lip and nose bridge. Historical: - Home Meds: 23:02 calcium [Active]; Vitamin D Oral [Active]; ay - PMHx: 23:02 Hyperlipidemia; ay - Immunization history:: Adult Immunizations up to date. - Infectious Disease History:: Denies. - Family history:: not pertinent. - Social history:: Smoking status: Patient denies any tobacco usage or history of. Screenin:19 [facility] ED Fall Risk Assessment (Adult) History of falling in the last 3 months, ay including since admission Yes- single mechanical fall (1 pt) Confusion or Disorientation No (0 pts) Intoxicated or Sedated Yes (3 pts) Impaired Gait Yes (1 pt) Mobility Assist Device Used No (0 pt) Altered Elimination No (0 pt) Score/Fall Risk Level 3 or more points = High Risk Oriented to surroundings, Maintained a safe environment, Educated pt \T\ family on fall prevention, incl call for assistance when getting out of bed, Assessed \T\ reinforced patient's understanding of fall precautions, Hourly rounding (assess needs \T\ fall precautionary measures) done. Abuse screen: Denies threats or abuse. Denies injuries from another. Nutritional screening: No deficits noted. Tuberculosis screening: No symptoms or risk factors identified. Assessment: 23:19 General: See Triage Assessment. ay 05/18 00:05 Reassessment: Patient appears in no apparent distress at this time. ay Vital Signs: 05/17 22:51 BP 135 / 84; Pulse 98; Resp 28 S; Temp 98.5; Pulse Ox 95% on R/A; ay 23:17 BP 134 / 82; Pulse 94; Resp 19 S; Pulse Ox 98% on R/A; ay 23:30 BP 124 / 72; Pulse 94; Resp 20 S; Pulse Ox 98% on R/A; ay [place] Coma Score: 23:00 Eye Response: spontaneous(4). Motor Response: obeys commands(6). Verbal Response: kenny oriented(5). Total: 15. 23:19 Eye Response: spontaneous(4). Motor Response: obeys commands(6). Verbal Response: ay oriented(5). Total: 15. ED Course: 22:30 Patient arrived in ED. [id number] 22:45 Jesu Domingo MD is Attending Physician. kenny 22:50 Justus Cleaning, RN is Primary Nurse. ay 23:00 Triage completed. ay 23:02 Arm band placed on right wrist. ay 23:19 Patient has correct armband on for positive identification. Bed in low position. Call ay light in reach. Side rails up X2. Adult w/ patient. Provided Education on: plan of care. 23:19 No provider procedures requiring assistance completed. EKG done, by ED staff, reviewed ay by Jesu Domingo MD. Maintain EMS IV. Dressing intact. Good blood return noted. Site clean \T\ dry. Gauge \T\ site: 20g R hand. Flushed with 10 mL NS. 23:35 CT Head C Spine In Process Unspecified. EDMS 23:35 Facial Bones W/O Con CT In Process Unspecified. EDMS 05/18 00:26 IV discontinued, intact, bleeding controlled, No redness/swelling at site. Pressure ay dressing applied. Administered Medications: 05/17 23:05 Drug: Banana Bag - (Multivitamin IV 1 amp, NS 0.9% IV 1000 ml, Thiamine IV 100 mg, bm8 foLIC Acid IVPB 1 mg) IV at bolus once Route: IV; Rate: bolus; Site: right wrist; 05/18 00:28 Follow up: IV Status: Completed infusion; IV Intake: 1000ml ay 00:29 Follow up: Response: No adverse reaction ay Medication: 05/17 23:19 VIS not applicable for this client. ay Intake: 05/18 00:28 IV: 1000ml; Total: 1000ml. ay Outcome: 00:14 Discharge ordered by . kenny 00:26 Discharged to home ambulatory, ay 00:26 Condition: stable 00:26 Discharge instructions given to patient, Instructed on discharge instructions, follow up and referral plans. medication usage, Demonstrated understanding of instructions, follow-up care, medications, Prescriptions given X 1, 00:28 Patient left the ED. ay Signatures: Dispatcher [employer] EDJesu Neff MD MD cha Jeffries, Jennifer [id number] McDonald, Brad, RN RN Justus Moreira, RN RN stefanie
[2024-05-18 07:23] VITALS: TEMP 98.5
[2024-05-18 07:24] VITALS: O2SAT 98
[2024-05-18 07:26] VITALS: BP 124/72
--- NOTE | 2024-05-20 12:46 | EKG ---
Test Date: 2024-05-17 Test Time: 22:45:14 Clarifier Operator Helper: ABBY MEASUREMENT RESULTS: Intervals: Rate: 94 WI: 128 QRSD: 94 QT: 374 QTc: 467 [place]: P: 56 WI: 128 QRS: 34 T: 45 INTERPRETIVE STATEMENTS: Normal sinus rhythm Normal ECG No previous ECG available for comparison Electronically Signed On 05-20-24 12:42:14 DATA VIRTUALIZATION CONSULTANT by Jacob De La Rosa
== END 2024-05-18 00:28 | disposition home or self-care (01) ==
LOC: ER 22:29
DX: S00.83XA Contusion of other part of head, initial encounter (principal); F10.129 Alcohol abuse with intoxication, unspecified; W18.30XA Fall on same level, unspecified, initial encounter; E87.6 Hypokalemia
CPT/HCPCS: 96365; 93005; 85025; 36415; 84484; 80053; 70450; 72125; 70486; 76377; 99284; 82077; J3411; J7030